=== PATIENT | female | born 1990 | race Caucasian/White ===

== ENCOUNTER → 2021-11-03 | Outpatient (CLI) | payer BC ==
[2021-11-03 10:17] LABS: BUN/CREATININE RATIO 19 (0-10)
[2021-11-04 08:17] LABS: FSH 3.7 mIU/mL (.); PROLACTIN 12.9 ng/mL (4.8-23.3)
[2021-11-04 09:18] LABS: INSULIN 5.8 uIU/mL (2.6-24.9)
== END ==
LOC: LAB 08:45
PROVIDERS: Nurse Practitioner Family
DX: N97.9 Female infertility, unspecified (principal)
CPT/HCPCS: 36415; 80053; 82627; 83001; 83002; 83036; 84146; 84402; 84403; 84439; 84443; 84702

== ENCOUNTER → 2021-12-15 | Outpatient (CLI) | payer BC | END | disposition home or self-care (01) | LOC: RAD 07:12 | DX: Z31.41 Encounter for fertility testing (principal) | CPT/HCPCS: 74740; C2628; Q9967 ==

== ENCOUNTER → 2022-01-08 | Outpatient (CLI) | payer BC | LOC: EXRD 08:11 | DX: M25.562 Pain in left knee (principal) | CPT/HCPCS: 73564 ==